=== PATIENT | male | born 1965 | race Caucasian/White ===

== ENCOUNTER 2024-03-15 11:50 | Emergency (ER) | payer MEDICAID ==
[~2024-03-15] VITALS: Ht 170.2 cm; Wt 75.0 kg
[2024-03-15 11:54] VITALS: O2SAT 100
[2024-03-15] MEDS ORDERED: DICL100G58 TP (12:35)
[2024-03-15] MEDS ORDERED: KETOROLAC 15MG/ML VIAL IM ONE (12:45)
[2024-03-15] MEDS: ACETAMINOPHEN 325MG TABLET PO ONE (13:41)
[2024-03-15 14:22] VITALS: BP 128/78; PULSE 68; RESP 18; TEMP 98.7
== END 2024-03-15 14:24 | disposition home or self-care (01) ==
LOC: ER 12:57
DX: G89.29 Other chronic pain (principal); M54.2 Cervicalgia; Z88.6 Allergy status to analgesic agent
CPT/HCPCS: 99283; J1885